=== PATIENT | female | born 1990 ===

== ENCOUNTER 2016-12-28 01:31 | Emergency (ER) | payer OTHER ==
[2016-12-28 01:31] VITALS: BMI 26.6
[2016-12-28 01:43] VITALS: RESP 18
--- NOTE | 2016-12-28 02:08 | C.PDOC ---
History Of Present Illness 26 y/o F p/w sore throat x 2 days. States voice is hoarse. Reports nonproductive cough. Taken acetaminophen. Denies fever, chills, nausea, vomiting , dysuria. On menstrual period. Time Seen by Provider: 12/28/16 01:39 Chief Complaint (Nursing): ENT Problem Past Medical History Vital Signs: Last Vital Signs Temp 97.4 F L 12/28/16 01:42 Pulse 104 H 12/28/16 01:42 Resp 18 12/28/16 01:42 BP 122/79 12/28/16 01:42 Pulse Ox 97 12/28/16 02:16 - Medical History PMH: Anemia, Anxiety, Asthma, Bipolar Disorder, Bronchitis, Depression, Hyperthyroidism, Pneumonia Denies: Diabetes, Hepatitis, HIV, HTN, Hypercholesterolemia, Hypothyroidism, Seizures, Sexually Transmitted Disease - [facility] Procedures DELIVERY OF PRODUCTS OF CONCEPTION, EXTERNAL APPROACH (01/21/16) MEDICATION MANAGEMENT (03/06/16) REPAIR PERINEUM SKIN, EXTERNAL APPROACH (01/21/16) Family History: States: Unknown Family Hx - Social History Hx Tobacco Use: Yes (former smoker) Hx Alcohol Use: No Hx Substance Use: No - Immunization History Hx Tetanus Toxoid Vaccination: Yes Hx Influenza Vaccination: Yes Hx Pneumococcal Vaccination: No Review Of Systems Except As Marked, All Systems Reviewed And Found Negative. Constitutional: Negative for: Fever Respiratory: Negative for: Shortness of Breath Physical Exam - Physical Exam Additional Physical Exam Comments: Constitutional: No acute distress. Head: Normocephalic. Atraumatic. Eyes: PERRL. ENT: Moist mucous membranes. Hoarse Voice. Pharnygeal erythema. No exudates. Neck: Supple. Cardiovascular: Mildlytachycardic. Radial pulse 2+ bilaterally. Chest: No tenderness. Respiratory: Clear to auscultation bilaterally. GI: Soft. Nontender. Nondistended. Back: No CVA tenderness. Musculoskeletal: No tenderness or swelling of extremities. Skin: No rash. Neurologic: Alert, no focal deficit. ED Course And Treatment O2 Sat by Pulse Oximetry: 97 (room air ) Medical Decision Making Medical Decision Making: Rapid strep, toradol IM. Rapid strep negative. Will discharge home, f/u PMD, return to ER for worsening pain, fever, stiff neck, drooling, or any other problem. Disposition - Disposition Disposition: HOME/ ROUTINE Disposition Time: 02:43 Condition: STABLE Prescriptions: Ibuprofen [Motrin] 600 mg PO Q6 #25 tab Instructions: Laryngitis (ED) - Clinical Impression Clinical Impression: Pharyngitis
[2016-12-28 02:50] VITALS: BP 108/71; PULSE 82; TEMP 98.9; O2SAT 99
== END 2016-12-28 02:52 | disposition home or self-care (01) ==
LOC: C.ER 01:31
DX: J02.9 Acute pharyngitis, unspecified (principal)
CPT/HCPCS: 87070; 87430; 96372; 99283; J1885

== ENCOUNTER 2017-02-02 14:30 | Emergency (ER) | payer OTHER ==
[2017-02-02 14:30] VITALS: BMI 26.6
[2017-02-02 14:35] VITALS: BP 108/70; PULSE 84; RESP 16; TEMP 98.2; O2SAT 99
--- NOTE | 2017-02-02 14:52 | C.PDOC ---
Time Seen by Provider: 02/02/17 14:49 Chief Complaint (Nursing): Shortness Of Breath Past Medical History Vital Signs: Last Vital Signs Temp 98.2 F 02/02/17 14:33 Pulse 84 02/02/17 14:33 Resp 16 02/02/17 14:33 BP 108/70 02/02/17 14:33 Pulse Ox 99 02/02/17 14:33 - Medical History PMH: Anemia, Anxiety, Asthma, Bipolar Disorder, Bronchitis, Depression, Hyperthyroidism, Pneumonia Denies: Diabetes, Hepatitis, HIV, HTN, Hypercholesterolemia, Hypothyroidism, Seizures, Sexually Transmitted Disease - [facility] Procedures DELIVERY OF PRODUCTS OF CONCEPTION, EXTERNAL APPROACH (01/21/16) MEDICATION MANAGEMENT (03/06/16) REPAIR PERINEUM SKIN, EXTERNAL APPROACH (01/21/16) Family History: States: Unknown Family Hx - Social History Hx Tobacco Use: Yes (former smoker) Hx Alcohol Use: No Hx Substance Use: No - Immunization History Hx Tetanus Toxoid Vaccination: Yes Hx Influenza Vaccination: Yes Hx Pneumococcal Vaccination: No ED Course And Treatment O2 Sat by Pulse Oximetry: 99 Disposition - Disposition Forms: [employer] (Guamanian)
--- NOTE | 2017-02-02 14:53 | C.PDOC ---
History Of Present Illness 26 yr old female with PMHx of asthma, presents to the ER for asthma exacerbation since last night. Patient states she ran out of her pump. Patient states the symptoms are typical of her usual asthma symptoms. Denies fever, headache or dizziness. Time Seen by Provider: 02/02/17 14:49 Chief Complaint (Nursing): Shortness Of Breath History Per: Patient History/Exam Limitations: no limitations Onset/Duration Of Symptoms: Sudden Onset (Last night ) Past Medical History Reviewed: Historical Data, Nursing Documentation, Vital Signs Vital Signs: Last Vital Signs Temp 98.2 F 02/02/17 14:33 Pulse 84 02/02/17 14:33 Resp 16 02/02/17 14:33 BP 108/70 02/02/17 14:33 Pulse Ox 99 02/02/17 14:53 - Medical History PMH: Anemia, Anxiety, Asthma, Bipolar Disorder, Bronchitis, Depression, Hyperthyroidism, Pneumonia - [facility] Procedures DELIVERY OF PRODUCTS OF CONCEPTION, EXTERNAL APPROACH (01/21/16) MEDICATION MANAGEMENT (03/06/16) REPAIR PERINEUM SKIN, EXTERNAL APPROACH (01/21/16) Family History: States: No Known Family Hx - Social History Hx Tobacco Use: Yes (former smoker) Hx Alcohol Use: No Hx Substance Use: No - Immunization History Hx Tetanus Toxoid Vaccination: Yes Hx Influenza Vaccination: Yes Hx Pneumococcal Vaccination: No Review Of Systems Except As Marked, All Systems Reviewed And Found Negative. Constitutional: Negative for: Fever Respiratory: Positive for: Other (Asthma exacerbation. ) Neurological: Negative for: Headache, Dizziness Physical Exam - Physical Exam Appears: Non-toxic, No Acute Distress Skin: Normal Color, Warm, Dry, No Rash Head: Atraumatic, Normacephalic Oral Mucosa: Moist Throat: Normal, No Erythema, No Exudate, No Drooling Chest: Symmetrical, No Tenderness Cardiovascular: Rhythm Regular, No Murmur Respiratory: Normal Breath Sounds, No Rales, No Rhonchi, No Stridor, No Wheezing Neurological/Psych: Oriented x3, Normal Speech ED Course And Treatment O2 Sat by Pulse Oximetry: 99 (RA) Pulse Ox Interpretation: Normal Medical Decision Making Medical Decision Making: PLAN: * CXR NOTE: Patient states she does not want a treatment at the moment, just wants a prescription. Disposition Counseled Patient/Family Regarding: Diagnosis, Need For Followup, Rx Given - Disposition Referrals: YOUR,PMD [Other] Disposition: HOME/ ROUTINE Disposition Time: 14:52 Condition: GOOD Prescriptions: Albuterol HFA [Ventolin HFA 90 mcg/actuation (8 g)] 1 puff IH Q4 #1 inhaler Instructions: Asthma (ED) Forms: [facility] (German) - Clinical Impression Clinical Impression: Asthma exacerbation - Scribe Statement The provider has reviewed the documentation as recorded by the Wilfridoiblenny Hagen Provider Attestation: All medical record entries made by the Wilfridoiblenny were at my direction and personally dictated by me. I have reviewed the chart and agree that the record accurately reflects my personal performance of the history, physical exam, medical decision making, and the department course for this patient. I have also personally directed, reviewed, and agree with the discharge instructions and disposition.
--- NOTE | 2017-02-02 15:29 | RAD ---
HISTORY: Shortness of breath COMPARISON: No prior. TECHNIQUE: Chest PA and lateral FINDINGS: LUNGS: Mild venous congestion. Bibasilar breast and nipple shadows. Biapical pleural thickening. Right hilar prominence. PLEURA: No significant pleural effusion identified. No pneumothorax apparent. CARDIOVASCULAR: Normal. OSSEOUS STRUCTURES: No significant abnormalities. VISUALIZED UPPER ABDOMEN: Normal. OTHER FINDINGS: None. IMPRESSION: Mild venous congestion. Bibasilar breast and nipple shadows. Biapical pleural thickening. Right hilar prominence.
== END 2017-02-02 14:55 | disposition home or self-care (01) ==
LOC: C.ER 14:30
DX: J45.901 Unspecified asthma with (acute) exacerbation (principal)

== ENCOUNTER 2017-03-05 10:57 | Emergency (ER) | payer OTHER ==
[2017-03-05 10:57] VITALS: BMI 26.6
[2017-03-05 11:10] VITALS: RESP 18; TEMP 97.9
[2017-03-05] MEDS ORDERED: Albuterol-Ipratrop 3 mg / 0.5 (3 ml) UD INH STA (11:15)
--- NOTE | 2017-03-05 11:16 | C.PDOC ---
History Of Present Illness 26 year old female with a Hx of asthma, intubated once at age 13, presents to the ER with a complaining that her asthma has been "acting up" over the last few days. Patient reports she lost her inhaler last week; denies cough, fever, or chills. Time Seen by Provider: 03/05/17 11:05 Chief Complaint (Nursing): Cough, Cold, Congestion History Per: Patient History/Exam Limitations: no limitations Onset/Duration Of Symptoms: Days Current Symptoms Are (Timing): Still Present Location Of Pain: None Sick Contacts (Context): None Associated Symptoms: denies: Fever, Chills, Cough Recent travel outside of the [place]: No Past Medical History Reviewed: Historical Data, Nursing Documentation, Vital Signs Vital Signs: Last Vital Signs Temp 97.9 F 03/05/17 11:07 Pulse 96 H 03/05/17 11:07 Resp 18 03/05/17 11:07 BP 108/70 03/05/17 11:07 Pulse Ox 97 03/05/17 11:26 - Medical History PMH: Anemia, Anxiety, Asthma, Bipolar Disorder, Bronchitis, Depression, Hyperthyroidism, Pneumonia - [facility] Procedures DELIVERY OF PRODUCTS OF CONCEPTION, EXTERNAL APPROACH (01/21/16) MEDICATION MANAGEMENT (03/06/16) REPAIR PERINEUM SKIN, EXTERNAL APPROACH (01/21/16) Family History: States: Unknown Family Hx - Social History Hx Tobacco Use: Yes (former smoker) Hx Alcohol Use: No Hx Substance Use: No - Immunization History Hx Tetanus Toxoid Vaccination: Yes Hx Influenza Vaccination: Yes Hx Pneumococcal Vaccination: No Review Of Systems Constitutional: Negative for: Fever, Chills Cardiovascular: Negative for: Chest Pain, Palpitations Respiratory: Positive for: Shortness of Breath. Negative for: Cough Physical Exam - Physical Exam Appears: Well, Non-toxic, Other (Speaking in complete sentences) Skin: Normal Color, Warm, Dry Head: Atraumatic, Normacephalic Oral Mucosa: Moist Chest: Symmetrical, No Tenderness Cardiovascular: Rhythm Regular, No Murmur Respiratory: Decreased Breath Sounds (To the upper field), No Wheezing Extremity: No Pedal Edema Neurological/Psych: Oriented x3, Normal Speech, Normal Cognition ED Course And Treatment O2 Sat by Pulse Oximetry: 97 (Room air) Pulse Ox Interpretation: Normal Medical Decision Making Medical Decision Making: max pf unknown; pf pre treatment is 360. Nebulizer treatment administered. 1134 pm pt feel better after duoneb treatment. increased air movement in lungs. pt not sob wih ambulation. post treatment pf 390. will d/c patient with albuterol mdi and to f/u with pmd. Disposition Counseled Patient/Family Regarding: Diagnosis, Need For Followup, Rx Given - Disposition Referrals: Shaik Cifuentes MD [Staff Provider] - Disposition: HOME/ ROUTINE Disposition Time: 11:36 Condition: IMPROVED Additional Instructions: Please use inhaler as prescribed. Follow up with Dr Cifuentes. Return to ER for any worsening symptoms. Please track your peak flow daily using meter and chart. Prescriptions: Albuterol HFA [Ventolin HFA 90 mcg/actuation (8 g)] 2 puff IH Q6 #1 inhaler Instructions: Asthma (ED) Forms: [facility] (Pashto), General Discharge Instructions - Clinical Impression Clinical Impression: Asthma - Scribe Statement The provider has reviewed the documentation as recorded by the Scriblenny Sagastume All medical record entries made by the Scribe were at my direction and personally dictated by me. I have reviewed the chart and agree that the record accurately reflects my personal performance of the history, physical exam, medical decision making, and the department course for this patient. I have also personally directed, reviewed, and agree with the discharge instructions and disposition.
[2017-03-05] MEDS ORDERED: Albuterol-Ipratrop 3 mg / 0.5 (3 ml) UD ONE (11:17)
[2017-03-05 11:46] VITALS: BP 124/72; PULSE 85
[2017-03-08 20:41] VITALS: O2SAT 97
== END 2017-03-05 11:47 | disposition home or self-care (01) ==
LOC: C.ER 10:57
DX: J45.909 Unspecified asthma, uncomplicated (principal)

== ENCOUNTER 2017-04-29 05:29 | Emergency (ER) | payer OTHER ==
[2017-04-29 05:29] VITALS: BMI 26.6
[2017-04-29] MEDS ORDERED: Albuterol-Ipratrop 3 mg / 0.5 (3 ml) UD ONE ×3 (05:38→07:04)
[2017-04-29] MEDS ORDERED: Albuterol 0.042% Inhal Sol (1.25 mg/3 mL) UD ONE (06:23)
[2017-04-29] MEDS ORDERED: Albuterol-Ipratrop 3 mg / 0.5 (3 ml) UD INH STA ×3 (06:27→06:28)
--- NOTE | 2017-04-29 06:57 | C.PDOC ---
History Of Present Illness 26 year old female with a Hx of asthma presents to the ER with a complaint of cough, cold, congestion, chest tightness, and wheezing since yesterday. Patient used her nebulizer at home with no relief which prompted visit. Denies SOB, nausea, or vomiting. Time Seen by Provider: 04/29/17 05:49 Chief Complaint (Nursing): Cough, Cold, Congestion History Per: Patient History/Exam Limitations: no limitations Current Symptoms Are (Timing): Still Present Location Of Pain: None Sick Contacts (Context): None Associated Symptoms: Cough, Nasal Congestion, Other (Wheezing, Chest tightness) . denies: Fever, Chills, Nausea, Vomiting Ear Symptoms: Bilateral: None Recent travel outside of the [place]: No Past Medical History Reviewed: Historical Data, Nursing Documentation, Vital Signs Vital Signs: Last Vital Signs Temp 98.9 F 04/29/17 06:49 Pulse 99 H 04/29/17 06:49 Resp 24 04/29/17 06:49 BP 131/74 04/29/17 06:49 Pulse Ox 96 04/29/17 07:20 - Medical History PMH: Anemia, Anxiety, Asthma, Bipolar Disorder, Bronchitis, Depression, Hyperthyroidism, Pneumonia - [facility] Procedures DELIVERY OF PRODUCTS OF CONCEPTION, EXTERNAL APPROACH (01/21/16) MEDICATION MANAGEMENT (03/06/16) REPAIR PERINEUM SKIN, EXTERNAL APPROACH (01/21/16) Family History: States: Unknown Family Hx - Social History Hx Tobacco Use: Yes (former smoker) Hx Alcohol Use: No Hx Substance Use: No - Immunization History Hx Tetanus Toxoid Vaccination: Yes Hx Influenza Vaccination: Yes Hx Pneumococcal Vaccination: No Review Of Systems Constitutional: Negative for: Fever, Chills ENT: Positive for: Nose Congestion Respiratory: Positive for: Cough, Wheezing, Other (Chest tightness). Negative for: Shortness of Breath Gastrointestinal: Negative for: Nausea, Vomiting Physical Exam - Physical Exam Appears: Non-toxic Skin: Normal Color, Warm, Dry Head: Atraumatic, Normacephalic Eye(s): bilateral: Normal Inspection, EOMI Oral Mucosa: Moist Throat: Normal, No Erythema, No Other (Swelling) Neck: Normal, Supple Chest: Symmetrical, No Tenderness Cardiovascular: Rhythm Regular Respiratory: No Rales, No Rhonchi, Wheezing (Expiratory), Other (Decreased air entry) Gastrointestinal/Abdominal: Soft, No Tenderness Neurological/Psych: Oriented x3, Normal Speech, Normal Cognition ED Course And Treatment O2 Sat by Pulse Oximetry: 96 (Room air) Pulse Ox Interpretation: Normal Progress Note: CXR ordered. Benadryl, prednisone, and nebulizer treatment ordered. Reassessment Condition: Unchanged (reports no improvement after meds , however PF increased from 150 to 250. Pt with minimal exp wheezes and mildly decreased AE. Pt is pendind CXR and 3 rd duoneb ordered) Disposition - Disposition Disposition Time: 07:22 Condition: STABLE Forms: [facility] ([place] Citizen) - Clinical Impression Clinical Impression: Asthma - Scribe Statement The provider has reviewed the documentation as recorded by the Scribe Jeremias Sagastume All medical record entries made by the Scribe were at my direction and personally dictated by me. I have reviewed the chart and agree that the record accurately reflects my personal performance of the history, physical exam, medical decision making, and the department course for this patient. I have also personally directed, reviewed, and agree with the discharge instructions and disposition. Physician Patient Turnover Patient Signed Over To: Francie Up Handoff Comments: Pending CXR and reevaluation
[2017-04-29 08:43] VITALS: BP 120/64; PULSE 98; RESP 18; TEMP 98; O2SAT 96
--- NOTE | 2017-04-29 12:58 | RAD ---
HISTORY: cough, chest tightness COMPARISON: Chest x-ray performed 02/02/17 TECHNIQUE: Chest PA and lateral FINDINGS: Examination limited by habitus. LUNGS: No focal consolidation. Please note that chest x-ray has limited sensitivity for the detection of pulmonary masses. PLEURA: No significant pleural effusion identified. No definite pneumothorax . CARDIOVASCULAR: The cardiomediastinal silhouette appears within normal limits of size. OSSEOUS STRUCTURES: Mild degenerative changes of spine. VISUALIZED UPPER ABDOMEN: Unremarkable. OTHER FINDINGS: None. IMPRESSION: No focal consolidation, significant pleural effusion, or definite pneumothorax identified.
== END 2017-04-29 08:52 | disposition home or self-care (01) ==
LOC: C.ER 05:29
DX: J45.909 Unspecified asthma, uncomplicated (principal)

== ENCOUNTER 2017-07-09 00:10 | Emergency (ER) | payer OTHER ==
[2017-07-09 00:10] VITALS: BMI 26.6
[2017-07-09] MEDS ORDERED: Albuterol-Ipratrop 3 mg / 0.5 (3 ml) UD INH ONE (00:30)
[2017-07-09] MEDS ORDERED: Albuterol-Ipratrop 3 mg / 0.5 (3 ml) UD INH STA ×2 (00:47)
[2017-07-09] MEDS ORDERED: Albuterol-Ipratrop 3 mg / 0.5 (3 ml) UD ONE (00:52)
--- NOTE | 2017-07-09 01:03 | C.PDOC ---
Time Seen by Provider: 07/09/17 00:35 Chief Complaint (Nursing): Shortness Of Breath Past Medical History Vital Signs: Last Vital Signs Temp 98 F 07/09/17 00:23 Pulse 92 H 07/09/17 00:23 Resp 26 H 07/09/17 00:53 BP 125/76 07/09/17 00:23 Pulse Ox 99 07/09/17 00:23 - Medical History PMH: Anemia, Anxiety, Asthma, Bipolar Disorder, Bronchitis, Depression, Hyperthyroidism, Pneumonia Denies: Diabetes, Hepatitis, HIV, HTN, Hypercholesterolemia, Hypothyroidism, Seizures, Sexually Transmitted Disease - [facility] Procedures DELIVERY OF PRODUCTS OF CONCEPTION, EXTERNAL APPROACH (01/21/16) MEDICATION MANAGEMENT (03/06/16) REPAIR PERINEUM SKIN, EXTERNAL APPROACH (01/21/16) Family History: States: Unknown Family Hx - Social History Hx Tobacco Use: Yes (former smoker) Hx Alcohol Use: No Hx Substance Use: No - Immunization History Hx Tetanus Toxoid Vaccination: Yes Hx Influenza Vaccination: Yes Hx Pneumococcal Vaccination: No ED Course And Treatment O2 Sat by Pulse Oximetry: 99 Disposition - Disposition
[2017-07-09] MEDS ORDERED: Dexamethasone 4 mg/1 ml IM STA (01:29)
[2017-07-09] MEDS ORDERED: Dexamethasone 4 mg/1 ml ONE (01:33)
--- NOTE | 2017-07-09 01:52 | C.PDOC ---
History Of Present Illness Patient is a 26 y/o female, with a Hx of asthma, who presents to the ED with a complaint of SOB since this morning. Patient admits to trying several nebulizer treatments without relief; also notes mild dry cough. Patient admits to taking Prednisone this morning as well. No other physical complaints at this time. Time Seen by Provider: 07/09/17 00:35 Chief Complaint (Nursing): Shortness Of Breath History Per: Patient History/Exam Limitations: no limitations Onset/Duration Of Symptoms: Hrs (this morning) Current Symptoms Are (Timing): Still Present Associated Symptoms: Cough (mild, dry) Recent travel outside of the [place]: No Past Medical History Reviewed: Historical Data, Nursing Documentation, Vital Signs Vital Signs: Last Vital Signs Temp 98.6 F 07/09/17 02:17 Pulse 98 H 07/09/17 02:17 Resp 20 07/09/17 02:17 BP 130/70 07/09/17 02:17 Pulse Ox 99 07/09/17 03:29 - Medical History PMH: Anemia, Anxiety, Asthma, Bipolar Disorder, Bronchitis, Depression, Hyperthyroidism, Pneumonia Denies: Diabetes, Hepatitis, HIV, HTN, Hypercholesterolemia, Hypothyroidism, Seizures, Sexually Transmitted Disease Surgical History: No Surg Hx - [facility] Procedures DELIVERY OF PRODUCTS OF CONCEPTION, EXTERNAL APPROACH (01/21/16) MEDICATION MANAGEMENT (03/06/16) REPAIR PERINEUM SKIN, EXTERNAL APPROACH (01/21/16) Family History: States: Unknown Family Hx - Social History Hx Tobacco Use: Yes (former smoker) Hx Alcohol Use: No Hx Substance Use: No - Immunization History Hx Tetanus Toxoid Vaccination: Yes Hx Influenza Vaccination: Yes Hx Pneumococcal Vaccination: No Review Of Systems Respiratory: Positive for: Cough, Shortness of Breath Physical Exam - Physical Exam Appears: Well, Non-toxic, Other (anxious) Skin: Normal Color, Warm, Dry Eye(s): bilateral: Normal Inspection Oral Mucosa: Moist Chest: Symmetrical Cardiovascular: Rhythm Regular, No Murmur Respiratory: Decreased Breath Sounds, No Accessory Muscle Use, No Rales, No Rhonchi, No Wheezing (expiratory), Other (negative retractions) Neurological/Psych: Oriented x3 ED Course And Treatment O2 Sat by Pulse Oximetry: 99 Progress Note: Nebulizer treatmentx 3 administered. Pt appears anxious, refuses decadron IM or PO prednisone, states it triggers her anxiety. Pt states she feels nbetter and wants to leave. Benadryl PO ordered. On re-eval, patient stated symptoms improved. Patient okay with going home and was subsequently discharged. Disposition Counseled Patient/Family Regarding: Diagnosis, Need For Followup, Rx Given - Disposition Referrals: PMD, PMD [Other] Disposition: HOME/ ROUTINE Disposition Time: 01:51 Condition: STABLE Additional Instructions: Increase PO fluids Continue current meds / nebulizers and prednisone at home Follow up with PMD Return to ER if worse Instructions: Asthma (ED) Forms: [employer] (Singaporean) - Clinical Impression Clinical Impression: Asthma exacerbation - Scribe Statement The provider has reviewed the documentation as recorded by the Scribe Erica Dias All medical record entries made by the Scribe were at my direction and personally dictated by me. I have reviewed the chart and agree that the record accurately reflects my personal performance of the history, physical exam, medical decision making, and the department course for this patient. I have also personally directed, reviewed, and agree with the discharge instructions and disposition.
[2017-07-09 02:18] VITALS: BP 130/70; PULSE 98; RESP 20; TEMP 98.6
[2017-07-09 03:22] VITALS: O2SAT 99
== END 2017-07-09 02:18 | disposition home or self-care (01) ==
LOC: C.ER 00:10
DX: J45.901 Unspecified asthma with (acute) exacerbation (principal)

== ENCOUNTER 2017-09-27 22:23 | Emergency (ER) | payer OTHER ==
[2017-09-27 22:23] VITALS: BMI 26.6
[2017-09-27] MEDS ORDERED: Albuterol-Ipratrop 3 mg / 0.5 (3 ml) UD INH STA (23:11)
--- NOTE | 2017-09-27 23:11 | C.PDOC ---
History Of Present Illness 26 y/o female with Hx asthma presents to ED with complaints of SOB. Patient states she used her last dueneb inhaler liquid today. Patient reports he ran out of the liquid and puffer. Denies any other physical complaints. 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 Time Seen by Provider: 09/27/17 22:41 Chief Complaint (Nursing): Shortness Of Breath History Per: Patient History/Exam Limitations: no limitations Onset/Duration Of Symptoms: Hrs Current Symptoms Are (Timing): Still Present Current Respiratory Medications: See Home Med List Associated Symptoms: denies: Fever, Chills, Sweating, Chest Pain, Dizziness Recent travel outside of the [place]: No Past Medical History Reviewed: Historical Data, Nursing Documentation, Vital Signs Vital Signs: Last Vital Signs Temp 97 F L 09/28/17 00:00 Pulse 88 09/28/17 00:00 Resp 14 09/28/17 00:00 BP 110/70 09/28/17 00:00 Pulse Ox 96 09/28/17 00:17 - Medical History PMH: Anemia, Anxiety, Asthma, Bipolar Disorder, Bronchitis, Depression, Hyperthyroidism, Pneumonia - [facility] Procedures DELIVERY OF PRODUCTS OF CONCEPTION, EXTERNAL APPROACH (01/21/16) MEDICATION MANAGEMENT (03/06/16) REPAIR PERINEUM SKIN, EXTERNAL APPROACH (01/21/16) Family History: States: Unknown Family Hx - Social History Hx Tobacco Use: Yes (former smoker) Hx Alcohol Use: No Hx Substance Use: No - Immunization History Hx Tetanus Toxoid Vaccination: Yes Hx Influenza Vaccination: Yes Hx Pneumococcal Vaccination: No Review Of Systems Constitutional: Negative for: Fever, Chills Cardiovascular: Negative for: Chest Pain, Palpitations Respiratory: Positive for: Shortness of Breath. Negative for: Cough Gastrointestinal: Negative for: Nausea, Vomiting, Abdominal Pain, Diarrhea Neurological: Negative for: Weakness, Numbness, Dizziness Physical Exam - Physical Exam Appears: Well, Non-toxic, No Acute Distress, Other (Obese) Skin: Normal Color, Warm, Dry Head: Atraumatic, Normacephalic Eye(s): bilateral: Normal Inspection Oral Mucosa: Moist Neck: Supple Chest: Symmetrical, No Tenderness Cardiovascular: Rhythm Regular Respiratory: No Rales, No Rhonchi, No Wheezing, Other (Mild tubular breath sounds) Gastrointestinal/Abdominal: Soft, No Tenderness, No Distention Extremity: Normal ROM, No Pedal Edema Neurological/Psych: Oriented x3, Normal Speech, Normal Cognition, Other (no focal deficits ) ED Course And Treatment O2 Sat by Pulse Oximetry: 96 (RA) Pulse Ox Interpretation: Normal Medical Decision Making Medical Decision Making: mild/if any asthma symptoms ran out of meds @ home so good she came in for refills responded well to ED tx. Administered Nebulizer treatment. Disposition Doctor Will See Patient In The: Office Counseled Patient/Family Regarding: Studies Performed, Diagnosis - Disposition Referrals: Shaik Cifuentes MD [Staff Provider] - Disposition: HOME/ ROUTINE Disposition Time: 23:40 Condition: GOOD Prescriptions: Albuterol HFA [Ventolin HFA 90 mcg/actuation (8 g)] 2 puff IH Q4H PRN #1 puff PRN Reason: asthma Albuterol/Ipratropium [Duoneb 3 MG/3 Ml-0.5 MG/3 Ml 3 Ml] 6 ml IH Q4H PRN #100 neb PRN Reason: asthma Spacer, Inhalation [Aerochamber] 1 dev IH DAILY #1 dev Instructions: Asthma in Adults, Rescue vs Controller Inhalers, How to Use a Spacer Forms: [employer] [facility] (Hungarian) - Clinical Impression Clinical Impression: Asthma, Medication refill - Scribe Statement The provider has reviewed the documentation as recorded by the Wilfridoiblenny Bentley All medical record entries made by the Scribe were at my direction and personally dictated by me. I have reviewed the chart and agree that the record accurately reflects my personal performance of the history, physical exam, medical decision making, and the department course for this patient. I have also personally directed, reviewed, and agree with the discharge instructions and disposition.
[2017-09-27] MEDS ORDERED: Albuterol 0.083% Inhal Sol (2.5 mg/3 mL) UD ONE (23:20)
[2017-09-28 00:01] VITALS: BP 110/70; PULSE 88; RESP 14; TEMP 97
[2017-09-28 00:11] VITALS: O2SAT 96
== END 2017-09-28 00:01 | disposition home or self-care (01) ==
LOC: C.ER 22:23
DX: Z76.0 Encounter for issue of repeat prescription (principal); J45.909 Unspecified asthma, uncomplicated; Z87.891 Personal history of nicotine dependence

== ENCOUNTER 2018-02-19 17:42 | Emergency (ER) | payer OTHER ==
[2018-02-19 17:43] VITALS: BMI 26.6
[2018-02-19] MEDS ORDERED: Oxycodone/Acetaminophen 5/325 mg Tab PO STA (18:31)
[2018-02-19] MEDS ORDERED: Lidocaine 1% w Epi 1:100,000 Inj INJ ONE (18:31)
[2018-02-19] MEDS ORDERED: Oxycodone/Acetaminophen 5/325 mg Tab ONE (18:55)
--- NOTE | 2018-02-19 18:56 | C.PDOC ---
History Of Present Illness 27 y/o female presents to the ED complaining of a labial cyst developing for the past week. States she tried to see her PMD today but they were not available. Patient reports the area is painful to touch. No h/o similar episodes. Admits to shaving the area. She denies any drainage, fever, or chills. Patient denies taking any pain medication at home prior to arrival. Time Seen by Provider: 02/19/18 18:17 Chief Complaint (Nursing): Abnormal Skin Integrity History Per: Patient History/Exam Limitations: no limitations Onset/Duration Of Symptoms: Days Current Symptoms Are (Timing): Still Present Past Medical History Reviewed: Historical Data, Nursing Documentation, Vital Signs Vital Signs: Last Vital Signs Temp 98.2 F 02/19/18 19:33 Pulse 80 02/19/18 19:33 Resp 16 02/19/18 19:33 BP 102/64 02/19/18 19:33 Pulse Ox 98 02/19/18 19:33 - Medical History PMH: Anemia, Anxiety, Asthma, Bipolar Disorder, Bronchitis, Depression, Hyperthyroidism, Pneumonia Denies: Diabetes, Hepatitis, HIV, HTN, Hypercholesterolemia, Hypothyroidism, Seizures, Sexually Transmitted Disease - [facility] Procedures DELIVERY OF PRODUCTS OF CONCEPTION, EXTERNAL APPROACH (01/21/16) MEDICATION MANAGEMENT (03/06/16) REPAIR PERINEUM SKIN, EXTERNAL APPROACH (01/21/16) Family History: States: Unknown Family Hx - Social History Hx Tobacco Use: Yes (former smoker) Hx Alcohol Use: No Hx Substance Use: No - Immunization History Hx Tetanus Toxoid Vaccination: Yes Hx Influenza Vaccination: Yes Hx Pneumococcal Vaccination: No Review Of Systems Constitutional: Negative for: Fever, Chills Genitourinary: Negative for: Dysuria, Vaginal Bleeding Skin: Positive for: Other (painful bump to labia). Negative for: Rash Physical Exam - Physical Exam Appears: Non-toxic, No Acute Distress Skin: Warm, Dry Head: Atraumatic, Normacephalic Eye(s): bilateral: Normal Inspection, EOMI Oral Mucosa: Moist Neck: Normal ROM Chest: Symmetrical Respiratory: No Accessory Muscle Use Gastrointestinal/Abdominal: Soft, No Tenderness Back: No CVA Tenderness, No Vertebral Tenderness Pelvic: Other (1 cm fluctuant, tender area to right labia) Extremity: Normal ROM Extremity: Bilateral: Atraumatic, Normal ROM Neurological/Psych: Oriented x3, Normal Speech ED Course And Treatment O2 Sat by Pulse Oximetry: 96 (RA) Pulse Ox Interpretation: Normal Progress Note: Patient given 1 tab of Percocet PO for pain control. I&D performed by me, with (+) purulent drainage expressed. Patient started on Keflex PO and will be discharged on Keflex and Bactrim. Instructed patient to return for wound check in 2 days or sooner if symptoms worsen. - Incision & Drainage Of Abscess Anesthesia: Lidocaine 1%, With Epi Prep Used: Sterile Water, Betadine Procedure: Incised W/Scalpel Blade#: (11), Drained Pus, Irrigated Cavity W/ Saline, Probed To Break Up Loculations, Packed W/Gauze Disposition Counseled Patient/Family Regarding: Diagnosis, Need For Followup, Rx Given - Disposition Disposition: HOME/ ROUTINE Disposition Time: 19:22 Condition: STABLE Additional Instructions: Wound check in 2 days. Return to ER if symptoms persist or worsen. Prescriptions: Cephalexin [cephalexin] 500 mg PO TID #21 cap Naproxen [Naprosyn] 1 tab PO BID PRN #20 tab PRN Reason: Pain Sulfamethoxazole/Trimethoprim [Bactrim DS 800 mg-160 mg] 1 tab PO BID #14 tab Instructions: Bartholin's Gland Cyst Forms: [employer] (Macedonian) - POA Present On Arrival: None - Clinical Impression Clinical Impression: Bartholin cyst - PA / [employer] / Resident Statement MD/DO has reviewed & agrees with the documentation as recorded. - Scribe Statement The provider has reviewed the documentation as recorded by the Scribe (Karoline Cho) All medical record entries made by the Scribe were at my direction and personally dictated by me. I have reviewed the chart and agree that the record accurately reflects my personal performance of the history, physical exam, medical decision making, and the department course for this patient. I have also personally directed, reviewed, and agree with the discharge instructions and disposition.
[2018-02-19 19:34] VITALS: BP 102/64; PULSE 80; RESP 16; TEMP 98.2
[2018-02-20 13:18] VITALS: O2SAT 96
== END 2018-02-19 19:33 | disposition home or self-care (01) ==
LOC: C.ER 17:42
DX: N75.0 Cyst of Bartholin's gland (principal)

== ENCOUNTER 2018-11-24 13:42 | Emergency (ER) | payer OTHER ==
[2018-11-24 13:42] VITALS: BMI 26.6
[2018-11-24 13:49] VITALS: O2SAT 98
[2018-11-24] MEDS ORDERED: Albuterol 0.083% Inhal Sol (2.5 mg/3 mL) UD INH STA (15:25)
[2018-11-24] MEDS ORDERED: Albuterol-Ipratrop 3 mg / 0.5 (3 ml) UD IH STA (15:25)
[2018-11-24] MEDS ORDERED: Albuterol 0.083% Inhal Sol (2.5 mg/3 mL) UD ONE (15:35)
[2018-11-24] MEDS ORDERED: Albuterol-Ipratrop 3 mg / 0.5 (3 ml) UD ONE (15:35)
--- NOTE | 2018-11-24 15:55 | C.PDOC ---
History Of Present Illness 27 year old female presents to ED with complaint of chest tightness and wheezing since she woke up this morning. Patient states that she took her nebulizer before going to work. Once she was at work she felt tightness in her chest. She states that she ran out of her Ventolin, prompting her visit to the ED. She denies SOB, palpitations, weakness, or numbness. Time Seen by Provider: 11/24/18 14:37 Chief Complaint (Nursing): Cough, Cold, Congestion History Per: Patient History/Exam Limitations: no limitations Onset/Duration Of Symptoms: Days (8) Current Symptoms Are (Timing): Still Present Past Medical History Reviewed: Historical Data, Nursing Documentation, Vital Signs Vital Signs: Last Vital Signs Temp 98.6 F 11/24/18 13:45 Pulse 96 H 11/24/18 13:45 Resp 20 11/24/18 13:45 BP 102/64 11/24/18 13:45 Pulse Ox 98 11/24/18 13:45 Primary Care Provider: Shaik Cifuentes - Medical History PMH: Anemia, Anxiety, Asthma, Bipolar Disorder, Bronchitis, Depression, Hyperthyroidism, Pneumonia Denies: Diabetes, Hepatitis, HIV, HTN, Hypercholesterolemia, Hypothyroidism, Seizures, Sexually Transmitted Disease Surgical History: No Surg Hx - [facility] Procedures DELIVERY OF PRODUCTS OF CONCEPTION, EXTERNAL APPROACH (01/21/16) MEDICATION MANAGEMENT (03/06/16) REPAIR PERINEUM SKIN, EXTERNAL APPROACH (01/21/16) Family History: States: Unknown Family Hx - Social History Hx Tobacco Use: Yes (former smoker) Hx Alcohol Use: No Hx Substance Use: No - Immunization History Hx Tetanus Toxoid Vaccination: Yes Hx Influenza Vaccination: Yes Hx Pneumococcal Vaccination: No Review Of Systems Constitutional: Negative for: Fever, Chills, Weakness Cardiovascular: Positive for: Chest Pain (chest tightness). Negative for: Palpitations Respiratory: Positive for: Wheezing. Negative for: Cough, Shortness of Breath, Sputum Neurological: Negative for: Weakness, Numbness Physical Exam - Physical Exam Appears: Well, Non-toxic, No Acute Distress Skin: Normal Color, Warm, Dry Head: Atraumatic, Normacephalic Neck: Normal ROM, Supple Chest: Symmetrical, No Deformity, No Tenderness Cardiovascular: Rhythm Regular, No Murmur Respiratory: No Accessory Muscle Use, No Rales, No Rhonchi, Wheezing (mild, diffuse, bilateral) Extremity: Capillary Refill (<2 seconds) Neurological/Psych: Oriented x3, Normal Speech, Normal Cognition ED Course And Treatment O2 Sat by Pulse Oximetry: 98 (in RA) Pulse Ox Interpretation: Normal - Radiology CXR: Interpreted by Me CXR Interpretation: Yes: No Acute Disease Progress Note: Patient given Duoneb, Albuterol, and prednisone. CXR ordered for patient. Reassessment Condition: Improved (no wheezing, not feeling tight anymore) Disposition - Disposition Disposition: HOME/ ROUTINE Disposition Time: 16:01 Condition: IMPROVED Additional Instructions: Follow up with PMD within 1-2 days. Return to ED if feel worse. Prescriptions: Albuterol 0.083% [Albuterol Sulfate 3 Ml] 3 ml IH .Q4-6H #100 vial predniSONE [predniSONE Tab] 2 tab PO DAILY #8 tab Albuterol HFA [Ventolin HFA 90 mcg/actuation (8 g)] 1 puff IH .Q4-6H #1 inhaler Instructions: Asthma, Adult (DC) Forms: [employer] (Georgian) - Clinical Impression Clinical Impression: Asthma exacerbation - PA / [employer]ANT / Resident Statement MD/DO has reviewed & agrees with the documentation as recorded. (Barbara Barber) - Scribe Statement The provider has reviewed the documentation as recorded by the Scribe (Barbara Barber) All medical record entries made by the Scribe were at my direction and personally dictated by me. I have reviewed the chart and agree that the record accurately reflects my personal performance of the history, physical exam, medical decision making, and the department course for this patient. I have also personally directed, reviewed, and agree with the discharge instructions and disposition.
[2018-11-24 16:17] VITALS: BP 101/59; PULSE 90; RESP 17; TEMP 98.5
--- NOTE | 2018-11-24 19:10 | RAD ---
Date of service: 11/24/2018 HISTORY: wheezing COMPARISON: 04/29/2017 TECHNIQUE: Chest PA and lateral views FINDINGS: LUNGS: No active pulmonary disease. PLEURA: No significant pleural effusion identified. No pneumothorax apparent. CARDIOVASCULAR: No aortic atherosclerotic calcification present. Normal cardiac size. No pulmonary vascular congestion. OSSEOUS STRUCTURES: No significant abnormalities. VISUALIZED UPPER ABDOMEN: Normal. OTHER FINDINGS: None. IMPRESSION: No active disease.
== END 2018-11-24 16:09 | disposition home or self-care (01) ==
LOC: C.ER 13:42
DX: J45.901 Unspecified asthma with (acute) exacerbation (principal); Z87.891 Personal history of nicotine dependence